=== PATIENT | female | born 1990 | race Caucasian/White ===

== ENCOUNTER → 2024-11-28 | Outpatient (CLI) | payer OTHER, SELFPAY | LOC: M RAD 10:55 | PROVIDERS: ATTEND Nurse Practitioner Family | DX: O32.2XX0 Maternal care for transverse and oblique lie, not applicable or unspecified (principal); Z3A.23 23 weeks gestation of pregnancy ==

== ENCOUNTER → 2025-02-19 | Outpatient (REF) | payer OTHER | LOC: M PLALAB 06:55 | PROVIDERS: ATTEND Nurse Practitioner Family | DX: Z36.85 Encounter for antenatal screening for Streptococcus B (principal); Z3A.35 35 weeks gestation of pregnancy ==

== ENCOUNTER → 2025-03-07 | Outpatient (CLI) | payer OTHER | LOC: M WHC 07:28 | PROVIDERS: ATTEND Obstetrics & Gynecology | DX: O09.293 Supervision of pregnancy with other poor reproductive or obstetric history, third trimester (principal); Z3A.37 37 weeks gestation of pregnancy ==